=== PATIENT | male | born 1985 | race Caucasian/White ===

== ENCOUNTER 2019-04-25 14:34 | Emergency (ER) | payer MEDICAID, SELFPAY ==
[2019-04-25 14:35] VITALS: BP 133/67; PULSE 102; RESP 18; TEMP 36.6; O2SAT 98; BMI 28.3
--- NOTE | 2019-04-25 16:08 | ED.VISSUMM ---
- ER Visit Summary Date of Service: 04/25/19 Chief Complaint: Right eye pain History of Present Illness: The patient is a 34 M with no primary care physician. 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 He wears safety glasses. However, he reports that 2 days ago began having a foreign body sensation in the superior lateral quadrant of his right eye. He describes it as scratchy. He reports he has mild photophobia. He denies any discharge from his eye. He states that he does have slightly blurred vision. Is not wear glasses or contacts. Physical Examination: Vitals: Stable. Afebrile. General: Well-nourished and well-developed. Head: Normocephalic atraumatic. Eyes: Right upper eyelid was everted for exam. There is no foreign material under it. There is diffuse conjunctival injection. There is no foreign body in his cornea. He does have a small corneal abrasion at 10:00 with fluorescein dye uptake. There is no [place] sign. Neck: Supple, no lymphadenopathy. No JVD. Nontender. Cardiovascular: Regular rate and rhythm. No murmurs. Respiratory: No respiratory distress. Clear to auscultation bilaterally. Abdominal: Soft, nontender, nondistended, normal bowel sounds. No guarding, rebound, or peritoneal signs. Back: Nontender. Extremities: Nontender, no edema. Skin: Normal color, no rash. Neurologic: Alert and oriented ?3. Cranial nerves II through XII are intact. Normal strength and sensation. Psych: Normal affect. Emergency Department Course and Treatment: Patient's pain completely resolved with placement of tetracaine. He had erythromycin ointment placed. Treatment Plan: Patient be discharged erythromycin ointment. Instructed to follow-up with Dr. Merrill in 3 days for another exam. Return to the emergency department for any worsening symptoms. Disposition: To home in improved and stable condition. Impression: 1. Corneal abrasion on right. This note was generated with [employer] dictation software. It may contain incorrect words, spelling, and punctuation that were not noted in review of the chart prior to signing ED Disposition - Plan for ED Patient: Disposition: Home or Assisted Living Instructions: ED Corneal Abrasion Referrals: Ponce Merrill MD [STAFF PHYSICIAN] - 2 Days
[2019-04-25] MEDS: Fluorescein 1 MG STRIP 1 STRIP OPHTHALMIC (16:26)
[2019-04-25] MEDS: Tetracaine 0.5% Ophthalmic Bottle OPHTHALMIC (16:27)
== END 2019-04-25 16:27 | disposition home or self-care (01) ==
PROVIDERS: Emergency Provider Emergency Medicine
DX: S05.01XA Injury of conjunctiva and corneal abrasion without foreign body, right eye, initial encounter (principal); X58.XXXA Exposure to other specified factors, initial encounter; Y93.9 Activity, unspecified; Y92.9 Unspecified place or not applicable; Y99.9 Unspecified external cause status; Z72.0 Tobacco use
CPT/HCPCS: 99283

== ENCOUNTER 2019-04-26 13:07 | Emergency (ER) | payer MEDICAID, SELFPAY ==
[2019-04-25 14:35] VITALS: BMI 28.3
[2019-04-26 13:10] VITALS: BP 135/89; PULSE 114; RESP 17; TEMP 37.1; O2SAT 98; BMI 25.6
--- NOTE | 2019-04-26 13:38 | ED.DCSUM_ITS ---
- ER Visit Summary Date of Service: 04/26/19 Chief Complaint: Possible STD History of Present Illness: The patient is a 34 M who presents with possible STD for the past couple days. Patient states he has some dysuria. Patient admits to some urethral discharge. Patient denies any fevers or chills. Patient states it is burning in his urethra. Patient denies any nausea or vomiting. Patient denies any abdominal pain. Patient denies any hematuria. Patient denies any flank or back pain. Physical Examination: Vital signs are stable. Patient is afebrile. Patient is in no acute distress. Oral mucosa is pink and moist. Neck is supple. Trachea is midline. There is no JVD. Heart was regular rate and rhythm. Lungs are clear and equal bilaterally. Abdomen is soft. Bowel sounds are normal. There is no tenderness. Cranial nerves II through XII are intact. There are no focal motor or sensory deficits noted. Test Results: Urine was sent for GC and Chlamydia cultures. Emergency Department Course and Treatment: Patient was given Rocephin, Zithromax, and Flagyl here. Patient was instructed to follow-up with his primary care physician for results. Patient was instructed to avoid alcohol since he was given Flagyl. Patient understands and is agreeable with the plan. All questions were answered. Disposition: Discharge home Impression: Urethritis This note was generated with [employer] dictation software. It may contain incorrect words, spelling, and punctuation that were not noted in review of the chart prior to signing ED Disposition - Plan for ED Patient: Disposition: Home or Assisted Living Diagnosis: Urethritis Instructions: URETHRITIS, Male (GC vs. Chlam) Referrals: Care Physician,No Primary [Primary Care Provider] - Skye Alva [NON-STAFF] - 3-5 Days
[2019-04-26] MEDS: Ceftriaxone 500 MG Vial 250 MG IM (14:17)
[2019-04-26] MEDS: Azithromycin 250 MG Tablet 1000 MG PO (14:30)
[2019-04-26] MEDS: metroNIDAZOLE 500 MG Tablet 2000 MG PO (14:30)
[2019-04-26 15:39] LABS: Chlamydia Trachomatis by PCR Negative (Negative); Probe Check PASS
[2019-04-26 15:42] LABS: Neisserai gonorrhoeae by PCR Positive (Negative)
== END 2019-04-26 14:35 | disposition home or self-care (01) ==
LOC: ED 13:43
PROVIDERS: Emergency Provider Emergency Medicine
DX: N34.2 Other urethritis (principal); Z72.0 Tobacco use
CPT/HCPCS: 87491; 87591; 96372; 99283

== ENCOUNTER 2019-05-10 08:06 | Emergency (ER) | payer MEDICAID, SELFPAY ==
[2019-05-10 08:07] VITALS: BP 154/108; PULSE 132; RESP 19; TEMP 36.6; O2SAT 100; BMI 28.3
[2019-05-10 08:08] VITALS: BP 137/102; PULSE 119; RESP 18; TEMP 36.1; O2SAT 99
--- NOTE | 2019-05-10 08:23 | ED.VISSUMM ---
- ER Visit Summary Date of Service: 05/10/19 Chief Complaint: Abscess History of Present Illness: The patient is a 34 M with no primary care physician. Reports that 5 days ago a friend injected steroids in his left antecubital fossa. He reports that he has swelling that began approximately 20 minutes later and had severe pain. Reports that the pain was a 10 out of 10 in severity. Pain has resolved. It is now just a pressure. However, he reports the area has become red in the past 24 hours. Patient denies any constitutional symptoms. No fever, chills, nausea, or vomiting. He is adamantly refusing IV drug abuse. Physical Examination: Vitals: Stable. Afebrile. General: Well-nourished and well-developed. Head: Normocephalic atraumatic. Neck: Supple, no lymphadenopathy. No JVD. Nontender. Cardiovascular: Tachycardic regular rhythm. No murmurs. Respiratory: No respiratory distress. Clear to auscultation bilaterally. Abdominal: Soft, nontender, nondistended, normal bowel sounds. No guarding, rebound, or peritoneal signs. Back: Nontender. Extremities: Left antecubital fossa has a 2 cm erythematous area that is fluctuant with minimal induration, no edema. Skin: Normal color, no rash. Neurologic: Alert and oriented ?3. Cranial nerves II through XII are intact. Normal strength and sensation. Psych: Normal affect. Emergency Department Course and Treatment: Patient refused pain medications. He is given doxycycline p.o. He had an I&D performed. He tolerated well. Treatment Plan: Patient be discharged on doxycycline. Instructed to follow-up with Dr. Springer in 3 to 5 days for another exam. Return to the emergency department for any worsening symptoms. Disposition: To home in improved and stable condition. Impression: 1. Abscess left antecubital fossa. 2. Incision and drainage. Procedure Note: Abscess was cleansed with chlorhexidine soap. Anesthetized with 1% lidocaine without epinephrine. An incision was made with an 11 scalpel blade. A moderate amount of pus was drained. Curved hemostats were used to break up loculations. The wound was copiously irrigated with normal saline. It was loosely packed with iodoform gauze. The patient tolerated it well. This note was generated with [employer] software. It may contain incorrect words, spelling, and punctuation that were not noted in review of the chart prior to signing ED Disposition - Plan for ED Patient: Instructions: ABSCESS, Incision and Drainage Prescriptions: Doxycycline 100 mg PO BID #14 capsule Referrals: Edilson Springer DO [STAFF PHYSICIAN] - 3-5 Days
[2019-05-10] MEDS: Doxycycline 100 MG CAPSULE PO (08:26)
== END 2019-05-10 09:02 | disposition home or self-care (01) ==
LOC: ED 08:34
PROVIDERS: Emergency Provider Emergency Medicine
DX: L02.414 Cutaneous abscess of left upper limb (principal); R00.0 Tachycardia, unspecified; Z72.0 Tobacco use
CPT/HCPCS: 10060; 99282

== ENCOUNTER → 2020-08-17 | Outpatient (CLI) | payer MEDICAID, SELFPAY ==
[2020-08-16 18:21] VITALS: BMI 26.6
[2020-08-17 15:17] LABS: Hemoglobin A1c 10.2 % (3.8-5.6)
== END | disposition home or self-care (01) ==
LOC: LABSPEC 14:49
PROVIDERS: Referring Provider Registered Nurse; Visit Provider Registered Nurse
DX: R73.9 Hyperglycemia, unspecified (principal)
CPT/HCPCS: 83036

== ENCOUNTER → 2020-08-19 | Outpatient (CLI) | payer MEDICAID, SELFPAY ==
[2020-08-16 18:21] VITALS: BMI 26.6
[2020-08-20 16:55] LABS: C-Peptide 3.8 ng/mL (1.1-4.4)
== END | disposition home or self-care (01) ==
LOC: LABSPEC 11:02
PROVIDERS: Visit Provider Registered Nurse
DX: R73.9 Hyperglycemia, unspecified (principal)
CPT/HCPCS: 84681